=== PATIENT | female | born 1960 | race Caucasian/White ===

== ENCOUNTER 2016-12-25 16:58 | Emergency (ER) | payer BC, OTHER ==
--- NOTE | 2016-12-25 17:28 | ERPHSYRPT ---
<ARLETHTAEDKLEY - Last Filed: 12/25/16 19:17> - History of Present Illness Time Seen by Provider: 12/25/16 17:24 Historian: patient Exam Limitations: no limitations Patient Subjective Stated Complaint: deanna reports having severe chest pain at home, cardiac hx 2 stents and protein c deficiency causes herto throw clots Triage Nursing Assessment: pt alert and orietnedx3, pupils perrla2, lung sounds clear, ycyof2c equal bilateral radius. skin clean white and drt. able to ambulate well, gait is steady. pedeal pulses present bialteral Physician History: 56-year-old white female arrives with complaint of 10 minutes of substernal chest pain described as a heaviness and shortness of breath onset 10 minutes prior to arrival, Patient states that she took 2 full size aspirin and one baby aspirin before she arrives she now states she is pain free, Past medical history includes atherosclerotic coronary artery disease protein C deficiency pulmonary embolism, Past surgical history includes cardiac stents and , Patient states she is on Coumadin and Plavix at home Timing/Duration: today (10 minutes prior to arrival) Activities at Onset: none Quality: other (heaviness) Location: other (pain across the entire anterior chest) Chest Pain Radiation: no radiation Severity of Pain-Max: moderate Severity of Pain-Current: none Modifying Factors: Improves With: aspirin (patient states she took 2 . Aspirin and one baby aspirin prior to arrival) Associated Symptoms: shortness of breath, No nausea, No vomiting, No palpitations, No heartburn, No abdominal pain, No cough, No hurts to breathe, No diaphoresis, No chills, No fever, No fatigue, No weakness, No swelling/lump in chest, No syncope, No rash, No headache, No dizziness, No edema, No back pain Prior Chest Pain/Cardiac Workup: cardiac cath Nitro Today/Relief: no nitro taken today Aspirin Treatment Today: provided at home (patient took 2 full size aspirin and one baby aspirin at home) Allergies/Adverse Reactions: No Known Drug Allergies Allergy (Verified 12/25/16 17:12) Home Medications: Atorvastatin Calcium [Lipitor] 80 mg PO DAILY 12/25/16 [History] Carvedilol 3.125 mg [Coreg 3.125 MG] 3.125 mg PO BID 12/25/16 [History] Clopidogrel Bisulfate 75 mg [PLAVIX 75 MG Tablet] 75 mg PO DAILY 12/25/16 [History] Glipizide 5 mg [Glucotrol 5 MG] 5 mg PO DAILY 12/25/16 [History] Metformin HCl 500 mg [Glucophage 500 MG] 500 mg PO BIDWM 12/25/16 [History ] Warfarin Sodium [Coumadin] 8 mg PO DAILY 12/25/16 [History] Hx Tetanus, Diphtheria Vaccination/Date Given: Yes Hx Influenza Vaccination/Date Given: No Hx Pneumococcal Vaccination/Date Given: No Immunizations Up to Date: Yes - Review of Systems Constitutional: No Fever, No Chills Eyes: No Symptoms Ears, Nose, & Throat: No Symptoms, No Ear Pain, No Ear Discharge, No Hearing Changes, No Tinnitus, No Nose Pain, No Nose Congestion, No Nose Discharge, No Sinus Drainage, No Epistaxis, No Mouth Pain, No Mouth Swelling, No Loose Teeth, No Throat Pain, No Throat Swelling, No Hoarse, No Painful Swallowing, No Snoring , No Stridor Respiratory: Dyspnea, No Cough, No Cyanosis, No Stridor, No Wheezing Cardiac: Chest Pain, No Edema, No Palpitations, No Syncope, No Orthopnea, No PND Abdominal/Gastrointestinal: No Abdominal Pain, No Nausea, No Vomiting, No Diarrhea Genitourinary Symptoms: No Dysuria Musculoskeletal: No Back Pain, No Neck Pain Skin: No Rash Neurological: No Dizziness, No Focal Weakness, No Sensory Changes Psychological: No Symptoms Endocrine: No Symptoms All Other Systems: Reviewed and Negative - Past Medical History Pertinent Past Medical History: Yes Cardiac History: Coronary Artery Disease, Other Other Medical History: PROTEIN C DEFFICIENCY ( THROWS CLOTS) - Past Surgical History Past Surgical History: Yes Cardiac: Cardiac Stent Female Surgical History: Section - Social History Smoking Status: Current every day smoker Drug Use: none - Nursing Vital Signs Nursing Vital Signs: Initial Vital Signs Temperature 98.1 F 12/25/16 16:59 Pulse Rate 87 12/25/16 16:59 Respiratory Rate 16 12/25/16 16:59 Blood Pressure 163/88 12/25/16 16:59 O2 Sat by Pulse Oximetry 98 12/25/16 16:59 Pain Scale Pain Intensity 0 - Physical Exam General Appearance: no apparent distress, alert Eye Exam: PERRL/EOMI, eyes nml inspection Ears, Nose, Throat Exam: normal ENT inspection, moist mucous membranes Neck Exam: normal inspection, non-tender, supple, full range of motion Respiratory Exam: normal breath sounds, lungs clear, No respiratory distress Cardiovascular Exam: regular rate/rhythm, normal heart sounds Gastrointestinal/Abdomen Exam: soft, No tenderness, No mass Back Exam: normal inspection, No CVA tenderness, No vertebral tenderness Extremity Exam: normal inspection Neurologic Exam: alert, oriented x 3, cooperative, normal mood/affect, sensation nml, No motor deficits Skin Exam: normal color (what), warm, dry SpO2 Interpretation: normal (98%) SpO2: 98 Oxygen Delivery: Room Air - Course Nursing assessment & vital signs reviewed: Yes EKG Interpreted by Me: RATE (86 bpm), Sinus Rhythm, NORMAL AXIS, Other (EKG sinus rhythm, 86 bpm, normal axis, poor anterior R-wave progression, no acute ST or T wave changes noted) - Radiology Exams Chest X-ray Interpretation: Interpreted by me, Negative, No Pneumonia, No Pneumothorax , Other (no acute disease process noted) Ordered Tests: Active Orders 24 hr Category Date Time Status Bakery Assistant STAT Care 12/25/16 17:22 Active EKG-ER Only STAT Care 12/25/16 17:22 Active IV Insertion STAT Care 12/25/16 17:22 Active CHEST 2 VIEWS (PA AND LAT) Stat Exams 12/25/16 17:22 Completed CBC W DIFF Stat Lab 12/25/16 17:30 Completed CMP Stat Lab 12/25/16 17:30 Completed D-DIMER QUANTITATION Stat Lab 12/25/16 17:30 Completed PROTIME WITH INR Stat Lab 12/25/16 17:30 Completed PTT Stat Lab 12/25/16 17:30 Completed TROPONIN Q3H Lab 12/25/16 17:30 Completed TROPONIN Q3H Lab 12/25/16 20:24 Completed TROPONIN Q3H Lab 12/25/16 23:30 Ordered TROPONIN Q3H Lab 12/26/16 02:30 Ordered TROPONIN Q3H Lab 12/26/16 05:30 Ordered Lab/Rad Data: Laboratory Result Diagrams 12/25/16 17:30 12/25/16 17:30 Laboratory Results 12/25/16 12/25/16 12/25/16 Range/Units 20:24 17:30 17:30 WBC (4.0-10.5) K/mm3 RBC (4.1-5.4) M/mm3 Hgb (12.0-16.0) gm/dl Hct (35-47) % MCV (78-100) fl MCH (26-32) pg MCHC (32-36) g/dl RDW (11.5-14.0) % Plt Count (150-450) K/mm3 MPV (6-9.5) fl Gran % (36.0-66.0) % Lymphocytes % (24.0-44.0) % Monocytes % (0.0-12.0) % Eosinophils % (0.00-5.0) % Basophils % (0.0-0.4) % Basophils # (0-0.4) INR 4.20 H (0.8-3.0) APTT 48.5 H (25.3-37.0) SECONDS D-Dimer 280 (0-500) ng/mL Sodium (136-145) mEq/L Potassium (3.5-5.1) mEq/L Chloride (98-107) mEq/L Carbon Dioxide (21-32) mEq/L Anion Gap (5-15) MEQ/L BUN (9-20) mg/dL Creatinine (0.55-1.30) mg/dl Estimated GFR ML/MIN Glucose (70-110) MG/DL Calcium (8.5-10.1) mg/dL Total Bilirubin (0.2-1.0) mg/dL AST (15-37) U/L ALT (12-78) U/L Alkaline Phosphatase (46-116) U/L Troponin I < 0.017 < 0.017 (0.000-0.056) ng/ml Serum Total Protein (6.4-8.2) gm/dL Albumin (3.4-5.0) g/dL 12/25/16 12/25/16 Range/Units 17:30 17:30 WBC 11.4 H (4.0-10.5) K/mm3 RBC 4.26 (4.1-5.4) M/mm3 Hgb 13.1 (12.0-16.0) gm/dl Hct 39.4 (35-47) % MCV 92.5 (78-100) fl MCH 30.8 (26-32) pg MCHC 33.2 (32-36) g/dl RDW 14.1 H (11.5-14.0) % Plt Count 297 (150-450) K/mm3 MPV 8.9 (6-9.5) fl Gran % 60.5 (36.0-66.0) % Lymphocytes % 31.0 (24.0-44.0) % Monocytes % 6.6 (0.0-12.0) % Eosinophils % 1.7 (0.00-5.0) % Basophils % 0.2 (0.0-0.4) % Basophils # 0.02 (0-0.4) INR (0.8-3.0) APTT (25.3-37.0) SECONDS D-Dimer (0-500) ng/mL Sodium 142 (136-145) mEq/L Potassium 4.4 (3.5-5.1) mEq/L Chloride 106 (98-107) mEq/L Carbon Dioxide 22.1 (21-32) mEq/L Anion Gap 18.1 H (5-15) MEQ/L BUN 13 (9-20) mg/dL Creatinine 1.06 (0.55-1.30) mg/dl Estimated GFR 57 ML/MIN Glucose 219 H (70-110) MG/DL Calcium 9.1 (8.5-10.1) mg/dL Total Bilirubin 0.20 (0.2-1.0) mg/dL AST 26 (15-37) U/L ALT 28 (12-78) U/L Alkaline Phosphatase 154 H (46-116) U/L Troponin I (0.000-0.056) ng/ml Serum Total Protein 7.5 (6.4-8.2) gm/dL Albumin 3.8 (3.4-5.0) g/dL - Progress Progress: improved Air Movement: fair Progress Note: 12/25/16 19:05 Patient has been pain-free since arrival initial troponin is normal EKG essentially normal INR is 4.20D dimer is to a normal 0-500 chest x-ray no acute changes patient does not want admitted for rule out she also does not want to contact Dr. Rodríguez for possible transfer Will obtain repeat troponin 3 hours after last draw 12/25/16 19:08 the patient is pain free with normal troponin, inr 4.2, ddimer 280 . The patient does not want admission for rule out nor doies she want me to contact Dr Barth or Dr Rodríguez for possible transfer. will obtain repeat troponon and consider release if [id number] patient states she sees Dr. Rodríguez tomorrow case will be transferred to Dr Ibrahim secondary to shift change case has beed discussed with Dr Ibrahim - Departure Clinical Impression: Chest pain Condition: Stable Referrals: AUSTIN BARTH [Primary Care Provider] - Instructions: Chest Pain Additional Instructions: FOLLOW UP WITH PRIVATE DOCTOR TOMORROW. <CHRISTIANNE IBRAHIM - Last Filed: 12/25/16 21:32> - Progress Progress Note: 12/25/16 19:[address] IBRAHIM AT 1913: PERRL, EOMI, PHARYNX PINK, LUNGS CLEAR, NO CARDIAC RUB, ABDOMINAL B.S. NORMAL, NO ANKLE EDEMA, NO TREMORS, ALERT & COOPERATIVE. PT STATES HER CHEST PAIN LASTED FOR 10 MINUTES AND HAS NOT RETURNED. - Departure Time of Disposition: 21:32 Departure Disposition: Home Critical Care Time: No
[2016-12-25 17:36] LABS: BASOPHIL % 0.2 % (0.0-0.4); Eosinophil % 1.7 % (0.00-5.0); Granulocytes % 60.5 % (36.0-66.0); Mean Cell Volume 92.5 fl (78-100); Mean Corpuscular Hemoglobin 30.8 pg (26-32); Mean Platelet Volume 8.9 fl (6-9.5); Monocytes % 6.6 % (0.0-12.0); Platelet Count 297 K/mm3 (150-450); Red Blood Count 4.26 M/mm3 (4.1-5.4); Red Cell Distribution Width 14.1 % (11.5-14.0); White Blood Count 11.4 K/mm3 (4.0-10.5)
[2016-12-25 18:00] LABS: INR 4.2 (0.8-3.0); PROTIME 47.4 SECONDS (9.95-12.35)
[2016-12-25 18:03] LABS: PTT 48.5 SECONDS (25.3-37.0)
[2016-12-25 18:08] LABS: ALBUMIN 3.8 g/dL (3.4-5.0); ANION GAP 18.1 MEQ/L (5-15); BILIRUBIN,TOTAL 0.2 mg/dL (0.2-1.0); Carbon Dioxide 22.1 mEq/L (21-32); Potassium 4.4 mEq/L (3.5-5.1); Total Protein 7.5 gm/dL (6.4-8.2)
--- NOTE | 2016-12-25 20:05 | XRAY ---
Indication: Chest pain. Comparison: None PA/lateral chest hyperinflated and clear. Heart is not enlarged. Vascularity normal. Bony thorax intact. Impression: Nonacute hyperinflated chest.
[2016-12-25 21:25] VITALS: BP 110/62
[2016-12-25 21:38] VITALS: PULSE 87; O2SAT 98
== END 2016-12-25 21:44 | disposition home or self-care (01) ==
LOC: ED 16:58
DX: R07.89 Other chest pain (principal); Z98.61 Coronary angioplasty status; D68.59 Other primary thrombophilia; R06.02 Shortness of breath; Z79.899 Other long term (current) drug therapy; Z79.01 Long term (current) use of anticoagulants; I25.10 Atherosclerotic heart disease of native coronary artery without angina pectoris
CPT/HCPCS: 36000; 36415; 71020; 80053; 84484; 85025; 85379; 85610; 85730; 93005; 93041; 99284